=== PATIENT | male | born 1980 | race Caucasian/White ===

== ENCOUNTER 2017-05-06 08:45 | Day surgery (SDC) | payer OTHER ==
[~2017-05-06] VITALS: Ht 167.6 cm; Wt 70.3 kg
[~2017-05-06 08:45] MED LIST: ASCO100089 PO; CHOL200047 PO; MESA1.2T2 PO; OMEG500C PO; Sodium Chloride LOK Flush 10 mL Syringe IV PRN; fentaNYL-PF 50 mCg/mL 2 mL Inj IVPUSH PRN
[2017-05-06 08:57] VITALS: BP 134/95; PULSE 80; RESP 18; O2SAT 97
[2017-05-06] MEDS: 0.9% Sodium Chloride 1,000 ML IV SCH ×2 (10:04→10:13)
[2017-05-06 10:18] VITALS: BP 133/90; PULSE 76; RESP 12; O2SAT 100
[2017-05-06 10:28] VITALS: BP 126/92; PULSE 76; RESP 16; O2SAT 100
[2017-05-06 10:41] VITALS: BP 125/93; PULSE 75; RESP 15; O2SAT 100
--- NOTE | 2017-05-06 10:52 | ENDO ---
[address] [address] ENDOSCOPY PROCEDURE PATIENT: RACHEL DAIGLE : 1980 MR#: [id number] ADMIT: 05/06/2017 JOB ID: [id number] DATE: 05/06/2017 PROCEDURE: Colonoscopy. INDICATION: Crohn disease. The patient's ASA classification is two. Mallampati score is one. MEDICATIONS: 1. Versed 6 mg. 2. Fentanyl 125 mcg. INSTRUMENT USED: PCF-H180AL PREP QUALITY: Good. PROCEDURE DETAILS: After informed consent was obtained, the patient was brought into the GI suite, where he was placed on oxygen via nasal cannula and monitored with continuous pulse oximeter, telemetry, and blood pressure monitoring. A time-out was performed. Then, he was placed in a left lateral decubitus position and medications were administered for sedation. Digital rectal exam was performed and was unremarkable. The colonoscope was then inserted into the rectum and advanced under direct visualization to the terminal ileum which was identified by the presence of the ileocecal valve and villous appearing mucosa of the terminal ileum. Once the terminal ileum was reached, the colonoscope was withdrawn back into the rectum. The mucosa and lumen were examined. Biopsies were obtained in the terminal ileum as well as throughout the colon and rectum. Scattered diverticula were seen in the sigmoid colon. IMPRESSION: Sigmoid diverticulosis otherwise normal exam from rectum to terminal ileum. RECOMMENDATIONS: 1. Await biopsy results. 2. Continue current medications. 3. Follow up in [facility]. COMPLICATIONS: None. ESTIMATED BLOOD LOSS: Less than 5 mL.
--- NOTE | 2017-05-07 15:19 | PATH ---
SURGICAL PATHOLOGY Attending Physician:Yris Lal CASE STATUS: Signed Out PATIENT NAME: RACHEL DAIGLE PID: [id number] : 1980 DATE COLLECTED:05/06/2017 16:37 SPECIMEN: 1: Small Intestine/Bowel, Biopsy 2: Colon, Biopsy 3: Colon, Biopsy 4: Colon, Biopsy 5: Rectum, Biopsy CLINICAL HISTORY: 1. TI BXS 2. ASCENDING COLON BXS 3. TRANSVERSE COLON BXS 4. DESCENDING COLON BXS 5. RECTAL BXS FINAL DIAGNOSIS: 1.TERMINAL ILEUM BIOPSIES: FRAGMENTS OF NORMAL-APPEARING TERMINAL ILEUM MUCOSA. Negative for granulomas. Negative for significant inflammation, dysplasia and malignancy. 2.ASCENDING COLON BIOPSIES: FRAGMENTS OF NORMAL-APPEARING COLON MUCOSA. Negative for significant architectural distortion. Negative for significant inflammation, dysplasia and malignancy. 3. 4.BIOPSIES, TRANSVERSE COLON AND DESCENDING COLON: SINGLE FRAGMENT OF COLON MUCOSA PRESENT IN EACH SPECIMEN CONTAINS A SMALL AREA OF MUCOSAL SCARRING CONSISTENT WITH PREVIOUS MUCOSAL INJURY. ALL ADDITIONAL FRAGMENTS IN BOTH SPECIMENS APPEAR NORMAL WITH NO EVIDENCE OF ADDITIONAL ARCHITECTURAL DISTORTION, INFLAMMATION, DYSPLASIA OR MALIGNANCY. 5.RECTAL BIOPSIES: FRAGMENTS OF NORMAL-APPEARING RECTAL MUCOSA. Negative for significant architectural distortion. Negative for significant inflammation, dysplasia and malignancy. ICD10 R19.7 GROSS DESCRIPTION: Received are five formalin-filled containers, each labeled with the patient' s name. 1. Received in formalin, labeled with the patient' s name and "TI BXs", are two fragments of mejia, soft tissue ranging in size from 0.1 x 0.1 x 0.1 cm to 0.2 x 0.2 x 0.1 cm. All fragments are totally submitted in cassette 1A. 2. Received in formalin, labeled with the patient' s name and "ascending BXs", are three fragments of mejia, soft tissue ranging in size from 0.1 x 0.1 x 0.1 cm to 0.2 x 0.1 x 0.1 cm. All fragments are totally submitted in cassette 2A. 3. Received in formalin, labeled with the patient' s name and "transverse BXs", are four fragments of mejia, soft tissue ranging in size from 0.1 x 0.1 x 0.1 cm to 0.2 x 0.1 x 0.1 cm. All fragments are totally submitted in cassette 3A. 4. Received in formalin, labeled with the patient' s name and "descending BXs", are four fragments of mejia, soft tissue ranging in size from 0.1 x 0.1 x 0.1 cm to 0.2 x 0.1 x 0.1 cm. All fragments are totally submitted in cassette 4A. 5. Received in formalin, labeled with the patient' s name and "rectal BXs", are three fragments of mejia, soft tissue ranging in size from 0.1 x 0.1 x 0.1 cm to 0.2 x 0.1 x 0.1 cm. All fragments are totally submitted in cassette 5A. ([id number]) MICRO DESCRIPTION: See diagnosis. ICD-9 CODES: CPT CODES: 1: 29958 2: 50767 3: 24313 4: 46277 5: 83651 Electronically Signed Out Andrey Cooper MD [facility] Pathology [facility] [address], [place] [address] Technical component performed at [facility], [facility] [address], [place], [address]
== END 2017-05-06 23:59 | disposition home or self-care (01) ==
LOC: END 08:45
PROVIDERS: ATTEND Internal Medicine Gastroenterology
DX: K50.80 Crohn's disease of both small and large intestine without complications (principal); K57.30 Diverticulosis of large intestine without perforation or abscess without bleeding
CPT/HCPCS: 45380; 99153; G0500; J7030